=== PATIENT | male | born 1975 | race Two or more races ===

== ENCOUNTER 2024-01-11 19:43 | Emergency (ER) | payer OTHER ==
[~2024-01-11] VITALS: Ht 175.3 cm; Wt 96.6 kg
[2024-01-11] MEDS ORDERED: TOPROL XL25 M1 (19:59)
[2024-01-11] MEDS ORDERED: DIOVAN160 M1 (19:59)
[2024-01-11] MEDS ORDERED: KETOROLAC TROMETHAMINE 60 MG VIAL IM ONE (21:00)
[2024-01-11 21:18] LABS: HEMATOCRIT 44.8 % (39.0-48.0); HEMOGLOBIN 15.1 g/dL (13-16.00); MEAN CELL VOLUME 83.2 fL (80.0-100.00); MEAN CORPUSCULAR HGB CONC 33.6 g/dl (32.0-36.0); PLATELET COUNT 229 K/uL (150-450); RED BLOOD COUNT 5.38 M/uL (4.00-6.00); RED CELL DISTRIBUTION WIDTH 14.6 % (11.5-14.5)
[2024-01-11] MEDS ORDERED: COLCRYS0.6 MG PO ×2 (22:28→22:31)
[2024-01-11] MEDS ORDERED: INDOMETHACIN50 MG PO (22:28)
== END 2024-01-11 22:47 | disposition home or self-care (01) ==
LOC: ER 19:44
PROVIDERS: Nurse Practitioner Family
DX: M10.9 Gout, unspecified (principal); M79.672 Pain in left foot; I10 Essential (primary) hypertension; M77.32 Calcaneal spur, left foot